=== PATIENT | female | born 1990 | race Two or more races ===

== ENCOUNTER 2021-08-05 14:11 | Emergency (ER) | payer OTHER ==
[~2021-08-05] VITALS: Ht 160 cm; Wt 50.0 kg
[2021-08-05 14:14] VITALS: BP 118/65
== END 2021-08-05 16:51 | disposition left against medical advice (07) ==
LOC: EMS 14:17
DX: R11.10 Vomiting, unspecified (principal); Z53.21 Procedure and treatment not carried out due to patient leaving prior to being seen by health care provider